=== PATIENT | male | born 1960 | race Caucasian/White ===

== ENCOUNTER 2016-12-12 16:20 | Inpatient (IN) | payer OTHER ==
[~2016-12-12] VITALS: Ht 172.7 cm; Wt 81.6 kg
--- NOTE | 2016-12-12 16:27 | NUR ---
56 Y/O MALE C/O DIFFICULTY WITH SPEECH AND WRITING X 1 WEEK; STATES HE WAS HAVING "VERTIGO SYMPTOMS" LAST WEEK AND SAW DOCTOR WHO "CHECKED ME OUT FOR STROKE AND I WAS OKAY". STATES, SINCE THAT VISIT AND THROUGHOUT THE WEEK, PT HAS "BEEN STRUGGLING WITH WORDS AND MY SAID MY SPEECH WAS SLURRED". PT NOTED TO PAUSE BEFORE STATING SOME WORDS. SPEECH CLEAR. SLIGHT WEAKNESS NOTED TO L HAND GRASP. NO ARM DRIFT NOTED. DENIES PAIN. TAKEN FOR EKG AND THEN FOR ROOM ASSIGNMENT/MD DIAS
--- NOTE | 2016-12-12 16:28 | NUR ---
NOTIFIED OF PATIENT'S CONDITION, BLOOD BEING DRAWN AND ROOM BEING MADE READY. DR CARRASQUILLO MADE AWARE OF SYMPTOMS.
[2016-12-12 16:47] LABS: ABSOLUTE BASOPHIL COUNT 0 /CUMM (0.0-0.2); ABSOLUTE EOSINOPHIL COUNT 0.4 /CUMM (0.0-0.7); ABSOLUTE GRANULOCYTE CT 4.2 /CUMM (1.4-6.5); ABSOLUTE LYMPH COUNT 2.1 /CUMM (1.2-3.4); ABSOLUTE MONOCYTE COUNT 0.4 /CUMM (0.10-0.60); BASOPHIL % 0.4 % (0.0-2.0); EOSINOPHIL % 5.3 % (0-5); GRANULOCYTE % 58.4 % (42.2-75.2); HEMATOCRIT 37.9 % (42-52); MEAN CORPUSCULAR HGB 29.4 PG (27.0-31.0); MEAN CORPUSCULAR VOLUME 86.6 FL (80.0-94.0); MEAN PLATELET VOLUME 8.5 FL (7.4-10.4); PLATELET COUNT 222 /CUMM (130-400); RBC DISTRIBUTION WIDTH 14.1 % (11.5-14.5); RED BLOOD CELL CT 4.38 /CUMM (4.70-6.10); WHITE BLOOD CELL COUNT 7.1 /CUMM (4.8-10.8)
--- NOTE | 2016-12-12 16:50 | NUR ---
PT ARRIVED TO AND AWAITING MD DIAS
--- NOTE | 2016-12-12 17:03 | ED NEURO DEFICIT/STROKE ---
See Addendum History of Present Illness General Chief Complaint: Neuro Symptoms/ Deficit Stated Complaint: DIFFICULTY WITH SPEACH AND WRITTING Source: patient, family Exam Limitations: no limitations Vital Signs & Intake/Output Vital Signs & Intake/Output Vital Signs Date Time Temp Pulse Resp B/P B/P Pulse O2 O2 Flow FiO2 Mean Ox Delivery Rate 12/13 1009 97.1 78 18 120/72 12/13 0842 97.1 78 18 120/72 96 Room Air 12/12 2325 98.2 74 18 130/70 96 Room Air 12/12 2111 96.3 65 18 148/77 96 Room Air 12/12 1830 97.5 59 15 133/75 96 Room Air Room Air 12/12 1729 Room Air Room Air 12/12 1623 96.9 76 14 164/94 98 Room Air ED Intake and Output 12/13 0000 12/12 1200 Intake Total 0 Output Total Balance 0 Intake, Oral 0 Patient 180 lb Weight Weight Reported by Patient Measurement Method Allergies Coded Allergies: No Known Allergies (12/12/16) Reconcile Medications Aspirin (Ecotrin*) 81 MG TABLET.DR 1 TAB PO DAILY HEART/BLOOD (Reported) Atorvastatin Calcium 10 MG TABLET 1 TAB PO DAILY CHOLESTEROL (Reported) Magnesium Oxide (Magnesium) 500 MG CAPSULE 1 CAP PO DAILY SUPPLEMENT ( Reported) Olmesartan Medoxomil (Benicar) 20 MG TABLET 0.5 TAB PO DAILY BP (Reported) Triage Note: 56 Y/O MALE C/O DIFFICULTY WITH SPEECH AND WRITING X 1 WEEK; STATES HE WAS HAVING "VERTIGO SYMPTOMS" LAST WEEK AND SAW DOCTOR WHO "CHECKED ME OUT FOR STROKE AND I WAS OKAY". STATES, SINCE THAT VISIT AND THROUGHOUT THE WEEK, PT HAS "BEEN STRUGGLING WITH WORDS AND MY SAID MY SPEECH WAS SLURRED". PT NOTED TO PAUSE BEFORE STATING SOME WORDS. SPEECH CLEAR. SLIGHT WEAKNESS NOTED TO L HAND GRASP. NO ARM DRIFT NOTED. DENIES PAIN. TAKEN FOR EKG AND THEN FOR ROOM ASSIGNMENT/MD DIAS Triage Nurses Notes Reviewed? yes HPI: Patient presents for evaluation of difficulty speaking and writing that has been more or less constant for about a week. Patient states that his speech has been "slippery" and that his handwriting has been "sloppy". He denies any expressive aphasia visual changes lower extremity weakness or palpitations but he states he does have a past history of an intermittent "racing heart" that has been evaluated by heart monitors on at least 2 occasions in the past with no diagnosis made. He currently takes magnesium. He denies smoking or drug use. Symptoms are described as mild and nothing seems to make them improve. Past History Travel History Traveled to [place] past 21 day No Medical History Any Pertinent Medical History? see below for history Neurological: NONE EENT: NONE Cardiovascular: hypertension Respiratory: NONE Gastrointestinal: NONE Hepatic: NONE Renal: NONE Musculoskeletal: NONE Psychiatric: NONE Endocrine: NONE Blood Disorders: NONE Cancer(s): NONE DEVELOPMENT LEAD/Reproductive: NONE Surgical History Surgical History: non-contributory Psychosocial History What is your primary language French Tobacco Use: Never used Family History Hx Contributory? No Review of Systems Review of Systems Constitutional: Reports: no symptoms. EENTM: Reports: no symptoms. Respiratory: Reports: no symptoms. Cardiovascular: Reports: no symptoms. GI: Reports: no symptoms. Genitourinary: Reports: no symptoms. Musculoskeletal: Reports: no symptoms. Skin: Reports: no symptoms. Neurological/Psychological: Reports: see HPI. Hematologic/Endocrine: Reports: no symptoms. Immunologic/Allergic: Reports: no symptoms. All Other Systems: Reviewed and Negative Physical Exam Physical Exam General Appearance: See below Cranial Nerves: see below Comments: Gen.: Well-nourished, well-developed, no acute respiratory distress. Head: Normocephalic, atraumatic. Eyes: Normal inspection bilaterally Ears: Normal inspection bilaterally Nose: Normal inspection Throat/mouth : Moist mucosa Neck: Supple, full range of motion, no goiter Heart: Regular rate and rhythm, no murmurs rubs or gallops Lungs: Clear to auscultation bilaterally with normal air entry Chest: Nontender Back: Normal range of motion Abdomen: Soft, nontender, nondistended, normal bowel sounds Extremities: Normal range of motion grossly, equal radial pulses, no cyanosis clubbing or edema, normal strength and deep tendon reflexes Neurologic: Cranial nerves 2 through 12 intact, speech is clear, patient is able to state "no if's and's or but's", no apparent aphasia, no dysmetria Skin: warm and dry Psychiatric: Calm, cooperative, no apparent delusions or hallucinations Core Measures CVA/TIA Diagnosis: Yes Severe Sepsis Present: No Septic Shock Present: No Progress Differential Diagnosis: stroke, TIA Plan of Care: Orders Procedure Date/time Status Regular Diet 12/13 B Active MRI-HEAD W/O SUSANA 12/13 0903 Active NIH Stroke Scale 12/13 0829 Active THYROID STIMULATING HORMONE 12/13 0025 Complete VITAMIN B12 12/13 0025 Complete [id number] DOPPLER 12/13 UNK Active SPEECH EVALUATION 12/13 UNK Active Admit to inpatient 12/13 UNK Active Lab Add-on Test 12/[address] NECK ANGIOGRAM 12/[address] HEAD ANGIOGRAM 12/13 UNK Active ECHOCARDIOGRAM 12/13 UNK Active Vital Signs 12/12 2357 Active Teach/Educate 12/12 2356 Active Pain Treatment and Response 12/12 2356 Active Nutritional Intake, Monitor 12/12 2356 Active Isolation 12/12 2356 Active Intake & Output 12/12 2356 Active Patient Care Conference 12/12 2356 Active Activity/Ambulation 12/12 2356 Active TROPONIN LEVEL 12/12 2229 Complete EKG 12/12 2229 Active Pathway - chart 12/12 2112 Active Pathway - chart 12/13 2111 Active Patient Data 12/13 2035 Active OXYGEN SETUP (GEN) 12/13 2011 Active Saline Lock 12/[address] in observation 12/13 2011 Active Vital Signs 12/13 2011 Active Activity/Ambulation 12/13 2011 Active Code Status 12/13 2011 Active Intake & Output 12/12 1728 Complete NIH Stroke Scale 12/12 1700 Complete TROPONIN LEVEL 12/12 1637 Complete COMPREHENSIVE METABOLIC PANEL 12/12 1637 Complete CBC WITHOUT DIFFERENTIAL 12/12 1637 Complete GLYCOSYLATED HGB 12/12 1635 Complete EKG 12/12 1624 Active House Staff 12/12 UNK Active VTE Mechanical Prophylaxis 12/12 UNK Complete Vital Signs 12/12 UNK Active Precautions 12/12 UNK Active NIH Stroke Scale 12/12 UNK Complete Intake & Output 12/12 UNK Complete Current Medications Sig/Cameron Start time Last Medication Dose Stop Time Status Admin Clopidogrel Bisulfate 75 MG DAILY 12/14 1000 AC (Plavix) Aspirin Buffered 81 MG DAILY 12/13 1000 AC 12/13 (Ecotrin) 1009 Losartan Potassium 25 MG DAILY 12/13 1000 AC 12/13 (Cozaar) 1009 Magnesium Oxide 400 MG DAILY 12/13 1000 AC 12/13 (Mag-Ox) 1009 Clopidogrel Bisulfate 325 MG ONCE ONE 12/13 0915 CAN (Plavix) 12/13 0916 Atorvastatin Calcium 80 MG 1700 12/12 2300 AC (Lipitor) Heparin Sodium 5,000 UNIT Q8 12/12 2200 AC 12/13 (Porcine) 0600 Acetaminophen 650 MG Q6 PRN 12/12 2114 AC (Tylenol) Morphine Sulfate 2 MG Q6-PRN PRN 12/12 2114 AC (Morphine) Oxycodone HCl 5 MG Q6 PRN 12/12 2114 AC (Roxicodone) Laboratory Tests 12/13/16 0025: Troponin I < 0.01, Vitamin B12 361, TSH 2.930 12/12/16 1635: Anion Gap 12, Estimated GFR > 60, BUN/Creatinine Ratio 17.5, Glucose 126 H, Hemoglobin A1c 5.7, Calcium 9.1, Total Bilirubin 0.4, AST 24, ALT 39, Alkaline Phosphatase 57, Troponin I < 0.01, Total Protein 6.9, Albumin 4.3, Globulin 2.6, Albumin/Globulin Ratio 1.7, CBC w Diff NO MAN DIFF REQ, RBC 4.38 L, MCV 86.6, MCH 29.4, RDW 14.1, MPV 8.5, Gran % 58.4, Lymphocytes % 29.9, Monocytes % 6.0, Eosinophils % 5.3 H, Basophils % 0.4, Absolute Granulocytes 4.2, Absolute Lymphocytes 2.1, Absolute Monocytes 0.4, Absolute Eosinophils 0.4, Absolute Basophils 0, PUBS MCHC 34.0 Initial ED EKG: NSR, rate (67), no ST T wave changes Prior EKG: unchanged Comments: pt observed drinking fluids in ED without cough or delayed swallowing. bedside dysphagia screen passed. Departure Departure Disposition: STILL A PATIENT Condition: Stable Clinical Impression Primary Impression: CVA (cerebral vascular accident) Qualifiers: CVA mechanism: unspecified Qualified Code: I63.9 - Cerebral infarction, unspecified Referrals: AZAR HOYOS DO (PCP/Family) Departure Forms: Customer Survey General Discharge Information Observation Note Spoke With: JEREMIAS MARTIN,FRANKLIN Physician Advisor Notified: ATUL MARTIN,NOEMI Gomes Place Patient In: Non-ED OBS Care Area Rationale for Observation: My rational for observation is as follows: pt presents with symptoms c/w cva days ago. he has risk factors for cerebrovascular disease and is at high risk of additional strokes with significant debility. this pt requires an expedited evaluation of reversible causes of stroke including dysrhythmia (pt states he suffers from intermittent racing heartbeat), carotid artery disease and cardioembolic phenomenon. given this and the holiday weekend ensueing, i feel he requires hospitalization for continuous cardiac monitoring, carotid doppler and echocardiogram, and initiation of medical management. neurology consult should be obtained.
--- NOTE | 2016-12-12 17:05 | NUR ---
ON ARRIVAL TO ROOM, NO SIGNS OF NEURO DEFICITS. EQUAL STRENGTH ON BOTH SIDE OF BODY. NO APHASIA NOTED. NIH SCALE = 0. 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
--- NOTE | 2016-12-12 18:10 | NUR ---
PT TO CT VIA STRETCHER
[2016-12-12] MEDS ORDERED: BENICAR20 M1 PO (18:22)
[2016-12-12] MEDS ORDERED: ATORVASTATIN CA10 M1 PO (18:22)
[2016-12-12] MEDS ORDERED: ASPIRIN EC81 M1 PO (18:23)
[2016-12-12] MEDS ORDERED: MAGNESIUM500 M2 PO (18:23)
--- NOTE | 2016-12-12 18:32 | CT SCAN REPORT ---
EXAMINATION: CT HEAD WITHOUT CONTRAST CLINICAL INFORMATION: Speech and writing difficulties. COMPARISON: None. TECHNIQUE: Contiguous axial imaging was performed from the skull base to vertex without intravenous contrast. DLP: 619 mGy-cm. FINDINGS: There is focal parenchymal hypoattenuation within the right cerebellar hemisphere as seen on series 2 image 18. This may represent an infarct of uncertain chronicity. There is no evidence of acute intracranial hemorrhage or cerebral territorial infarction. No abnormal mass effect or midline shift is seen. Jacobs to white matter differentiation is well preserved. No extra-axial fluid collections are identified. No hydrocephalus. No significant volume loss. Patchy periventricular and deep white matter hypoattenuation is consistent with mild small vessel ischemic changes. The osseous structures and soft tissues are normal. The mastoid air cells are well aerated. Moderate opacification of the ethmoid air cells. Mild opacification of the sphenoid sinuses. IMPRESSION: No acute intracranial hemorrhage. Focal hypoattenuation within the right cerebellar hemisphere could represent an infarct of uncertain chronicity. This could be further evaluated by MRI. Additional mild small vessel ischemic changes.
--- NOTE | 2016-12-12 20:38 | NUR ---
OBS PAPERWORK COMPLETED AND PLACED IN PATIENT CHART BY CASE MANGAEMENT.
--- NOTE | 2016-12-12 21:06 | History & Physical ---
MIAN MARTIN,NATALIEANDRE 12/12/162101: General Information and HPI MD Statement: I have seen and personally examined WILLIS WILLIAMSON and documented this H&P. The patient is a 56 year old M who presented with a patient stated chief complaint of [difficulty speaking and writing]. Source of Information: patient, old records Exam Limitations: no limitations History of Present Illness: This is a 56 yo male with PMH of palpitations, hyperlipidemia, hypertension who comes in for chief complaint of difficulty speaking and writing for the past 1 week. Patient states on Friday around 10:45 am while he was at work he noticed sudden onset of dizziness, slight nausea, and had to sit down. He went to the school nurse for further evaluation. He was noted to be slightly hypertensive with systolic in the 140s but otherwise no other deficits or abnormalities were noted. Subsequently, he noted some slight mechanical dysarthria in his speech and some minor changes in handwriting. Given the dysarthria, he went to see his PCP, Dr. Aguilera, on the same day who performed a physical exam and noted no deficits. He did however, start the patient on a low -dose aspirin. By Friday a.m. patient noted the dizziness went away but the dysarthria and the clumsy handwriting remained. Patient noted some slight nausea during the onset of dizziness on Friday but it eventually went away. He denies any choking or issues with swallowing. Denies any thought block or inability to articulat other than slight dysarthria. He endorsed some slight numbness in his right fifth digit but no other sensory deficits. Denies any headache, chest pain, shortness of breath, change in vision, constipation, diarrhea, or any prodromal symptoms the past week. Family history notable for stroke in his sister at the age of 60 and significant CAD in mother resulting in triple bypass. He does not smoke, is a social drinker up to 4 times a week with wine, denies any other drug history. He does endorse a distant history of "racing heart." He was evaluated with what he describes as a Holter monitor at least 2-3 times but apparently no diagnosis was made. 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 He has never had a previous such episode. Allergies/Medications Allergies: Coded Allergies: No Known Allergies (12/12/16) Home Med list Aspirin (Ecotrin*) 81 MG TABLET.DR 1 TAB PO DAILY HEART/BLOOD (Reported) Atorvastatin Calcium 10 MG TABLET 1 TAB PO DAILY CHOLESTEROL (Reported) Atorvastatin Calcium 80 MG TABLET 80 MG PO 1700 HEART Magnesium Oxide (Magnesium) 500 MG CAPSULE 1 CAP PO DAILY SUPPLEMENT ( Reported) Olmesartan Medoxomil (Benicar) 20 MG TABLET 0.5 TAB PO DAILY BP (Reported) Compliance With Home Meds: GOOD Past History Travel History Traveled to [place] past 21 day No Medical History Neurological: NONE EENT: NONE Cardiovascular: hypertension Respiratory: NONE Gastrointestinal: NONE Hepatic: NONE Renal: NONE Musculoskeletal: NONE Psychiatric: NONE Endocrine: NONE Blood Disorders: NONE Cancer(s): NONE 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 Ambulation: independent IADLs Independent: shopping. Employment History Employment Employed Review of Systems Review of Systems Constitutional: Denies: chills, fever, malaise, weakness. EENTM: Denies: blurred vision, double vision, visual changes, ear discharge, ear pain, nasal congestion, epistaxis, nasal pain, throat swelling. Cardiovascular: Denies: chest pain, edema, orthopena, palpitations, peripheral edema, syncope. Respiratory: Denies: cough, hemoptysis, orthopnea, short of breath, stridor, wheezing. GI: Denies: abdominal pain, bloating, constipation, diarrhea. Genitourinary: Denies: discharge, dysuria, frequency, hematuria, hesitation, nocturia, pain, urgency. Musculoskeletal: Denies: back pain, gout, joint pain, joint swelling, muscle pain, muscle stiffness, neck pain. Skin: Reports: no symptoms. Neurological/Psychological: Reports: numbness. Denies: anxiety, ataxia, cognitive dysfunction, confusion, depressed, dementia, emotional problems, headache, paresthesia, pre-existing deficit, petit mal seizures, tingling, tremors, tonic-clonic seizures, unable to move lower ext, unable to move upper ext, weakness. Exam & Diagnostic Data Last 24 Hrs of Vital Signs/I&O Vital Signs Date Time Temp Pulse Resp B/P B/P Pulse O2 O2 Flow FiO2 Mean Ox Delivery Rate 12/12 2325 98.2 74 18 130/70 96 Room Air 12/12 2111 96.3 65 18 148/77 96 Room Air 12/12 1830 97.5 59 15 133/75 96 Room Air Room Air 12/12 1729 Room Air Room Air 12/12 1623 96.9 76 14 164/94 98 Room Air Physical Exam General Appearance Alert, Oriented X3, Cooperative, No Acute Distress Skin No Rashes, No Breakdown, No Significant Lesion HEENT Atraumatic, PERRLA, EOMI, Mucous Membr. moist/pink, Cranial nerves 2-12 intact. No deviation of tongue or uvula . He did have some nystagmus to the left Neck Supple, No JVD, No LAD Cardiovascular Regular Rate, Normal S1, Normal S2, No Murmurs Lungs Clear to Auscultation, Normal Air Movement Abdomen Soft, No Tenderness Neurological Normal Gait, Normal Speech, Strength at 5/5 X4 Ext, Normal Tone, Sensation Intact, Cranial Nerves 3-12 NL, Reflexes 2+, cardiovascular 12 intact. No tongue or uvula deviation. He did have some nystagmus towards the left., no dysdiadochokinesia noted. No pronator drift., slight dysarthria noted particularly towards the suffix upwards. Handwriting a slightly untidy and different from baseline per patient., No pronator drift. Some slight imbalance noted when he was standing with eyes closed Extremities No Clubbing, No Cyanosis, No Edema, Normal Pulses Last 24 Hrs of Labs/Yung: Laboratory Tests 12/12/16 1635: Anion Gap 12, Estimated GFR > 60, BUN/Creatinine Ratio 17.5, Glucose 126 H, Calcium 9.1, Total Bilirubin 0.4, AST 24, ALT 39, Alkaline Phosphatase 57, Troponin I < 0.01, Total Protein 6.9, Albumin 4.3, Globulin 2.6, Albumin/ Globulin Ratio 1.7, CBC w Diff NO MAN DIFF REQ, RBC 4.38 L, MCV 86.6, MCH 29.4, RDW 14.1, MPV 8.5, Gran % 58.4, Lymphocytes % 29.9, Monocytes % 6.0, Eosinophils % 5.3 H, Basophils % 0.4, Absolute Granulocytes 4.2, Absolute Lymphocytes 2.1, Absolute Monocytes 0.4, Absolute Eosinophils 0.4, Absolute Basophils 0, PUBS MCHC 34.0 Assessment/Plan Assessment: This is a 56-year-old female with significant history of subjective palpitations is in for chief complaint of slight dysarthria, clumsy handwriting and dizziness. Given that he had some pathology noted in CT of head he is being admitted for further workup of stroke. ED workup shows: Vitals: 96.9, 76, 14, blood pressure 164/94, satting 90% room air. CBC shows white count 7.1, hemoglobin 12.9, hematocrit 37.9. BEP within normal limits. LFT within normal limits. CT HEAD IMPRESSION: No acute intracranial hemorrhage. Focal hypoattenuation within the right cerebellar hemisphere could represent an infarct of uncertain chronicity. This could be further evaluated by MRI. Additional mild small vessel ischemic changes. EKG: First-degree heart block with heart rate 67 and QTC 444 PLAN 1. Stroke: Patient has focal attenuation in the cerebellar hemisphere. Given the nystagmus and slight imbalance it corresponds with possible cerebellar infarct. However would not explain his dysarthria and change in handwriting. * Consider MRI for further evaluation per neurology recommendations * Echocardiogram * Ultrasound of carotids * Monitor on telemetry * Continue aspirin * Switch to high-dose statin * Neurology consult in a.m. 2. Previous history of palpitation: Patient states that he has distant history of racing heart rate without any resolution or diagnoses. He is in placed on magnesium for this by his PCP. He states that the magnesium seems to help. He has never been evaluated by manager ccu for his problem. * Continue magnesium * Cardio consult with Dr. Heard as rest of family members follow-up with this manager ccu 3. Hypertension: Patient came in with BP 164/94. * Continue home Benicar Full code Regular diet Chemical DVT prophylaxis As Ranked By This Provider Problem List: 1. Stroke Qualifiers CVA mechanism: unspecified Qualified Code: I63.9 - Cerebral infarction, unspecified Core Measures/Miscellaneous Acute Coronary Syndrome ACS Diagnosis: No Cerebrovascular Accident CVA/TIA Diagnosis: Yes NIH Stroke Scale: Total 1 Date Last Known Well: 12/04/16 Time Last Known Well: 1045 Neurological S/S of CVA: Dizziness Symptom Start Date: 12/04/16 Symptom Start Time: 104 Reason tPA not ordered Medical Contraindication Bedside Swallow Eval Done: Yes Result of Evaluation: Pass Days in Hospital: 3 Antithrombotic: No No Antithrombotic d/t: Medical Contraindication AFIB: No Aflutter: No No Anticoag d/t: Medical Contraindication Evidence of Atherosclerosis: No LDL Assessed Within 24 Hours: No (already done previously) Currently on Statin: Yes Rehab Needs Assessed: Medical Eval for Rehab PT Consult Ordered: Yes Congestive Heart Failure CHF Diagnosis: No Venous Thromboembolism VTE Risk Factors: Age > 40 [facility] d/t: No contraindications No VTE Pharm Prophylaxis d/t: No contraindications VTE Diagnosis: No VTE Type: NONE VTE Confirmed by (Test): NONE Severe Sepsis Severe Sepsis Present: No Septic Shock Septic Shock Present: No Miscellaneous Documentation Attending Case Discussed With: [facility] Primary Care Physician: AZAR AGUILERA DO Patient sees these Specialists unknown Level of Patient Care: Telemetry UL ELEONORA MARTIN,WEN 12/12/16 2201: Resident Review Statement Resident Statement: examined this patient, discussed with international broadcast music librarian, agreed with international broadcast music librarian, discussed with family Other Findings: 56-year-old man with past medical history significant for hypertension, hyperlipidemia, palpitations, came to emergency department chief complaint of difficulty speaking and some change in his handwriting that happened a week ago. Symptoms are constant for the last 1 week. According to him he developed some dizziness at around 10:45 AM on last Friday. Went to his primary care doctor and had a neurological examination. He was diagnosed to have vertigo and was told to do certain exercises. Since his symptoms persisted for over a week, at her appointment with primary care doctor mentioned about this and was told to go to the emergency department had a CAT scan. Vitals in emergency department patient afebrile, no tachypnea, no tachycardia, systolic blood pressure 133-164 and diastolic 75-94, oxygen saturation of 96-98% on room air. EKG showed first-degree heart block, heart rate of 66, sinus rhythm. On examination patient was alert and oriented not in any acute distress. S1 and S2 audible without any murmurs. Clear lungs, benign abdominal examination, no carotid bruit, on neurological examination, intact cranial nerves, horizontal nystagmus, sensation and strength intact bilateral upper and lower extremities, brisk reflexes, patient was swaying a little on Romberg. Gait without deficits. Labs did not show any leukocytosis, recent normal lipid panel, troponin of less than 0.01, no electrolyte abnormalities. Head CT scan was done which showed a focal hypoattenuation of right cerebellar hemisphere. Patient was admitted admitted on telemetry floor for the management of following problems Subacute ischemic stroke Source of ischemic stroke is unclear. There is no carotid bruit on examination patient does have history of palpitations therefore will rule out the possibility of any underlying arrhythmia. - Admit to Telemetry - Vitals Q Shift - Monitor BP - Keep BP above or equal to 160/90 - Q4 hour Neurochecks - Fall Precautions - ASA daily - Lipitor 80mg PO daily - Bed Side Swallow done in ED - PT/OT therapy - Will check trops and EKG X 2 - Neurology Consult - Check Echo - Carotid Dopplers - MRI Brain ? History of hypertension/hyperlipidemia We will change low-dose moderate intensity statin to high intensity statin in hospital given his recent presentation of ischemic stroke. Continue home medication for blood pressure control. Patient is on heparin subcutaneous for DVT prophylaxis Patient is on regular diet Patient had a swallow evaluation done in emergency department Patient is on pain pathway Patient is full code JANET MARTIN, [facility] 12/13/16 0113: Attending MD Review Statement Attending Statement Attending MD Statement: examined this patient, discuss w/resident/PA/SOLVENT PLANT OPERATOR, agreed w/resident/PA/SOLVENT PLANT OPERATOR, discussed with family Attending Assessment/Plan: 56 yo M with h/o HTN, HLD, and family h/o stroke in his sister at age 60 yrs, first noted vertigo > 1 week ago associated with speech deficits mainly difficulty pronouncing words, slurring and changes in his handwriting. He saw his PCP, who found no neurological deficits and prescribed low dose aspirin. However, symptoms did not get better, his PCP advised him to go to ER to get a CT scan. Denies facial droop, paresis, dysphagia, dyphonia, photophobia, vision changes or headache. Nonsmoker. Of note, he has been evaluated with Holter twice in the past for infrequent palpitations, with no clear etiology. He also had a stress test that was negative. Never seen a manager ccu. VSS. Neuro: speech for the most part clear with intermittent slurring, tongue/ uvula central, cranial nerve exam normal, horizontal nystagmus more prominent to the left, power 5/5, sensation intact, reflexes 2+, finger-nose testing normal, no dysdiadochokinesia, no pronator drift. Plantars downgoing. Romber's positive within right cerebellar hemisphere infarct of uncertain chronicity, mild small vessel ischemic changes. EKG: SR, first degree heart block. 1. Subacute (duration > 1 week) cerebellar ischemic stroke. Tele 23 Obs, neurochecks, aspirin, high dose statin, rule out ACS, obtain echo, carotid dopplers, MRI brain. Rule out arrhythmias. Neuro and Cardio consult. Check HbA1c , TSH, B12. Lipid panel last checked Aug 2016 (normal). Patient passed bedside swallow eval. PT/OT/ speech therapy. 2. Essential HTN. Resume olmesartan. DVT ppx Lovenox. Full code.
--- NOTE | 2016-12-12 21:14 | NUR ---
PATIENT AWAKE, ALERT AND ORIENTED. NIH SCALE-0. DENIES COMPLAINTS.
--- NOTE | 2016-12-12 21:52 | NUR ---
REPORT CALLED TO [facility].
--- NOTE | 2016-12-12 22:09 | NUR ---
IV EST #20 IN RIGHT FOREARM
--- NOTE | 2016-12-12 22:13 | NUR ---
[facility] CALLED FOR TRANSPORT
[2016-12-12 23:25] VITALS: BP 130/70
--- NOTE | 2016-12-13 06:19 | PN- Housestaff ---
See Addendum Subjective Follow-up For: Subacute stroke Tele-Events Since Last Visit: NSR with HR 53-73 First degree AVB at 10pm and 12am Subjective: Patient seen and examined at bedside. Resting comfortably in bed with no complaints. Still has difficulty with his handwriting with numbness in the finger and dysarthria. Eating well with no dysphagia. Denies any headache, vision changes, chest discomfort, palpitations, lightheadedness, dizziness, abdominal pain, n/v/c/d. Review of Systems Constitutional: Reports: see HPI. Objective Last 24 Hrs of Vital Signs/I&O Vital Signs Date Time Temp Pulse Resp B/P B/P Pulse O2 O2 Flow FiO2 Mean Ox Delivery Rate 12/12 2325 98.2 74 18 130/70 96 Room Air 12/12 2111 96.3 65 18 148/77 96 Room Air 12/12 1830 97.5 59 15 133/75 96 Room Air Room Air 12/12 1729 Room Air Room Air 12/12 1623 96.9 76 14 164/94 98 Room Air Intake & Output 12/13 1600 12/13 0800 12/13 0000 Intake Total 100 0 Output Total Balance 100 0 Intake, Oral 100 0 Patient 81.647 kg Weight Weight Reported by Patient Measurement Method Physical Exam General Appearance: Alert, Oriented X3, Cooperative, No Acute Distress Other Physical Findings: Skin No Rashes, No Breakdown, No Significant Lesion HEENT Atraumatic, PERRLA, EOMI, Mucous Membr. moist/pink, Cranial nerves 2-12 intact. No deviation of tongue or uvula . He did have some nystagmus to the left Neck Supple, No JVD, No LAD Cardiovascular Regular Rate, Normal S1, Normal S2, No Murmurs Lungs Clear to Auscultation, Normal Air Movement Abdomen Soft, No Tenderness Neurological Normal Gait, Normal Speech, Strength at 5/5 X4 Ext, Normal Tone, Sensation Intact, Cranial Nerves 3-12 NL, Reflexes 2+, cardiovascular 12 intact. No tongue or uvula deviation. He did have some nystagmus towards the left., no dysdiadochokinesia noted. No pronator drift., slight dysarthria noted particularly towards the suffix upwards. Handwriting a slightly untidy and different from baseline per patient., No pronator drift. Some slight imbalance noted when he was standing with eyes closed Extremities No Clubbing, No Cyanosis, No Edema, Normal Pulses Current Medications: Current Medications Sig/Cameron Start time Last Medication Dose Route Stop Time Status Admin Acetaminophen 650 MG Q6 PRN 12/12 2114 AC PO Aspirin Buffered 81 MG DAILY 12/13 1000 AC PO Atorvastatin Calcium 80 MG 1700 12/12 2300 AC PO Heparin Sodium 5,000 UNIT Q8 12/12 2200 AC 12/13 (Porcine) SC 0042 Losartan Potassium 25 MG DAILY 12/13 1000 AC PO Magnesium Oxide 400 MG DAILY 12/13 1000 AC PO Morphine Sulfate 2 MG Q6-PRN PRN 12/12 2114 AC IV Oxycodone HCl 5 MG Q6 PRN 12/12 2114 AC PO Last 24 Hrs of Lab/Yung Results Last 24 Hrs of Labs/Mics: Laboratory Tests 12/13/16 0025: Troponin I < 0.01, Vitamin B12 361, TSH 2.930 12/12/16 1635: Anion Gap 12, Estimated GFR > 60, BUN/Creatinine Ratio 17.5, Glucose 126 H, Hemoglobin A1c Pending, Calcium 9.1, Total Bilirubin 0.4, AST 24, ALT 39, Alkaline Phosphatase 57, Troponin I < 0.01, Total Protein 6.9, Albumin 4.3, Globulin 2.6, Albumin/Globulin Ratio 1.7, CBC w Diff NO MAN DIFF REQ, RBC 4.38 L, MCV 86.6, MCH 29.4, RDW 14.1, MPV 8.5, Gran % 58.4, Lymphocytes % 29.9, Monocytes % 6.0, Eosinophils % 5.3 H, Basophils % 0.4, Absolute Granulocytes 4.2, Absolute Lymphocytes 2.1, Absolute Monocytes 0.4, Absolute Eosinophils 0.4, Absolute Basophils 0, PUBS MCHC 34.0 Assessment/Plan Assessment: 56 yo M with h/o HTN, HLD, and family h/o stroke in his sister at age 60 yrs, first noted vertigo > 1 week ago associated with speech deficits mainly difficulty pronouncing words, slurring and changes in his handwriting most likely 2/2 subacute CVA. # Subacute cerebellar ischemic CVA - CT Head (12/12): No acute intracranial hemorrhage. Focal hypoattenuation within the right cerebellar hemisphere could represent an infarct of uncertain chronicity. This could be further evaluated by MRI. Additional mild small vessel ischemic changes. * Change observation to full admission * Continue tele to monitor for arrhythmias * NIH stroke scale neurochecks Q4H * Cont aspirin and high dose statin (increased to 80mg QD) * Rule out ACS wtih serial trops/EKGs * Obtain echocardiogram to r/o cardiac emboli * CTA of brain and neck and MRI of brain * Carotid dopplers - unremarakble (stenosis present on L carotid bifurication but less than 50%) * Appreciate neuro and cardio recs * Check HbA1c, TSH, B12 - unremarkable * Speech thearpy/eval, appreciate recs (Patient passed bedside swallow eval. PT/ OT/ speech therapy.) # Essential HTN. Patient on olmesartan 10mg QD at home. * Cont losartan 25mg PO QD - Heart healthy diet - Mild pain pathway - DVT ppx with Lovenox. - Full code. Problem List: 1. Stroke Pain Ratin Pain Location: 0 Pain Goal: Remain pain free Pain Plan: Mild pathway Tomorrow's Labs & Rationales: BEP to monitor for electrolytes
[2016-12-13 08:42] VITALS: BP 120/72; BP 122/64
--- NOTE | 2016-12-13 12:39 | Cons- Neurology ---
General Information and HPI Consulting Request Date of Consult: 12/13/16 Requested By: RANDELL ZHANG MD History of Present Illness: 56-year-old male with history of hypertension and hyperlipidemia presented one week prior to admission with acute vertigo seated with some slurring of speech and minor change in his handwriting. His dizziness largely resolved however as his speech difficulties remained, he was referred to the emergency room where he was ultimately admitted. CAT scan of the brain on admission showed a right cerebellar infarct. The patient had no prior history of stroke. He denied associated diplopia, dysphagia or gait ataxia. In point of fact, he was managing all activities of daily living over the past week including attending yoga class. Allergies/Medications Allergies: Coded Allergies: No Known Allergies (12/12/16) Home Med List: Aspirin (Ecotrin*) 81 MG TABLET.DR 1 TAB PO DAILY HEART/BLOOD (Reported) Atorvastatin Calcium 10 MG TABLET 1 TAB PO DAILY CHOLESTEROL (Reported) Magnesium Oxide (Magnesium) 500 MG CAPSULE 1 CAP PO DAILY SUPPLEMENT ( Reported) Olmesartan Medoxomil (Benicar) 20 MG TABLET 0.5 TAB PO DAILY BP (Reported) Review of Systems Review of Systems: Notable for slurred speech, impaired handwriting and resolving vertigo. 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 Ambulation: independent IADLs Independent: shopping. Employment History Employment: Employed Exam & Diagnostic Data Vital Signs and I&O Vital Signs Date Time Temp Pulse Resp B/P B/P Pulse O2 O2 Flow FiO2 Mean Ox Delivery Rate 12/13 1009 97.1 78 18 120/72 12/13 0842 97.1 78 18 120/72 96 Room Air 12/12 2325 98.2 74 18 130/70 96 Room Air 12/12 2111 96.3 65 18 148/77 96 Room Air 12/12 1830 97.5 59 15 133/75 96 Room Air Room Air 12/12 1729 Room Air Room Air 12/12 1623 96.9 76 14 164/94 98 Room Air Intake & Output 12/13 1600 12/13 0800 12/13 0000 Intake Total 100 0 Output Total Balance 100 0 Intake, Oral 100 0 Patient 180 lb Weight Weight Reported by Patient Measurement Method Pleasant middle-aged gentleman in no acute distress. Head was normocephalic and atraumatic. He was awake, alert and cooperative. Higher cortical function was grossly intact. Speech was fluent although minimally dysarthric. Pupils were equal and reactive. Extraocular movements were full. There was no nystagmus. There was no gross weakness of facial musculature. Hearing was normal. Tongue was midline. Motor examination showed no focal or lateralizing weakness. Deep tendon reflexes were symmetric. Plantar responses were flexor. Fine finger movements, rapid alternating movements, [id number] testing and [id number] testing all revealed no abnormalities. His gait was narrow based and steady. He was able to tandem walk. The march test was negative. Assessment/Plan Assessment: has suffered a small cerebellar, ischemic infarct. He currently has no signs of objective appendicular or gait ataxia. I expect that he will make a full recovery. Recommendations: I would pursue either a CTA or MRA in hopes of pinning down the site of his lesion. His clinical presentation would bespeak an abnormality in the posterior circulation as opposed to a carotid territory infarct. Echocardiogram also recommended. This could be performed as an outpatient if logistics do not permit the tests to be done today. He may be up and around ad herbie. The patient should continue on an aspirin and a statin. We would be happy to see him in follow-up in the office setting should there be lingering symptoms or concerns. Please feel free to call with any further questions. Consult Acknowledgment - Thank you for your consult request.
--- NOTE | 2016-12-13 13:01 | Cons- Cardiology ---
General Information and HPI Consulting Request Date of Consult: 12/13/16 Requested By: RANDELL ZHANG MD Reason for Consult: Subacute stroke; rule out cardiac embolic source Source of Information: patient, family Exam Limitations: no limitations History of Present Illness: The patient is a 56-year-old white male with a past medical history of palpitations, hyperlipidemia, and hypertension. The patient is admitted to the hospital following one week of neurologic symptoms. The patient notes that this past week, while at work, he noticed the acute onset of dizziness with some nausea. 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 No other obvious neurologic deficits were present at that time. However, the patient subsequently noted some mild speech difficulty and difficulty with handwriting. The patient was seen by Dr. Escalera. Apparently his examination at that time was normal. He was started on low-dose aspirin. Subsequent, the patient noted that the dysarthria and handwriting issues persisted and the patient came to the emergency room. He denies any other neurologic symptoms. He does note a history of palpitations but denies any palpitations during the two-week period prior to the actual event. He denies any other cardiovascular symptoms. Allergies/Medications Allergies: Coded Allergies: No Known Allergies (12/12/16) Home Med List: Aspirin (Ecotrin*) 81 MG TABLET.DR 1 TAB PO DAILY HEART/BLOOD (Reported) Atorvastatin Calcium 10 MG TABLET 1 TAB PO DAILY CHOLESTEROL (Reported) Magnesium Oxide (Magnesium) 500 MG CAPSULE 1 CAP PO DAILY SUPPLEMENT ( Reported) Olmesartan Medoxomil (Benicar) 20 MG TABLET 0.5 TAB PO DAILY BP (Reported) Current Medications: Current Medications Sig/Cameron Start time Last Medication Dose Route Stop Time Status Admin Acetaminophen 650 MG Q6 PRN 12/12 2115 AC PO Aspirin Buffered 81 MG DAILY 12/13 1000 AC 12/13 PO 1009 Atorvastatin Calcium 80 MG 1700 12/12 2300 AC PO Clopidogrel Bisulfate 75 MG DAILY 12/14 1000 AC PO Clopidogrel Bisulfate 300 MG ONCE ONE 12/13 0930 DC 12/13 PO 12/13 0931 1010 Clopidogrel Bisulfate 325 MG ONCE ONE 12/13 0915 CAN PO 12/13 0916 Heparin Sodium 5,000 UNIT Q8 12/12 2200 AC 12/13 (Porcine) SC 0600 Losartan Potassium 25 MG DAILY 12/13 1000 AC 12/13 PO 1009 Magnesium Oxide 400 MG DAILY 12/13 1000 AC 12/13 PO 1009 Morphine Sulfate 2 MG Q6-PRN PRN 12/12 2114 AC IV Oxycodone HCl 5 MG Q6 PRN 12/12 2114 AC PO Potassium Chloride 20 MEQ ONCE ONE 12/13 0915 DC 12/13 PO 12/13 0916 1010 Past History Travel History Traveled to [place] past 21 day No Medical History Neurological: NONE EENT: NONE Cardiovascular: hypertension Respiratory: NONE Gastrointestinal: NONE Hepatic: NONE Renal: NONE Musculoskeletal: NONE Psychiatric: NONE Endocrine: NONE Blood Disorders: NONE Cancer(s): NONE WIRE CHARGER/Reproductive: NONE Surgical History Surgical History: non-contributory Psychosocial History Smoking Status: Never Smoked ETOH Use: occasional use Illicit Drug Use: denies illicit drug use Functional Ability ADLs Independent: dressing, eating, toileting, bathing. Ambulation: independent IADLs Independent: shopping. Employment History Employment: Employed Exam & Diagnostic Data Vital Signs and I&O Vital Signs Date Time Temp Pulse Resp B/P B/P Pulse O2 O2 Flow FiO2 Mean Ox Delivery Rate 12/13 1009 97.1 78 18 120/72 12/13 0842 97.1 78 18 120/72 96 Room Air 12/12 2325 98.2 74 18 130/70 96 Room Air 12/12 2111 96.3 65 18 148/77 96 Room Air 12/12 1830 97.5 59 15 133/75 96 Room Air Room Air 12/12 1729 Room Air Room Air 12/12 1623 96.9 76 14 164/94 98 Room Air Intake & Output 12/13 1600 12/13 0800 12/13 0000 12/12 1600 12/12 0800 12/12 0000 Intake Total 100 0 Output Total Balance 100 0 Intake, Oral 100 0 Patient 180 lb Weight Weight Reported by Patient Measurement Method Physical Exam: General Appearance Alert, Oriented X3, Cooperative, No Acute Distress Skin No Rashes, No Breakdown, No Significant Lesion HEENT Atraumatic, PERRLA, EOMI, Mucous Membr. moist/pink, Cranial nerves 2-12 intact. No deviation of tongue or uvula . He did have some nystagmus to the left Neck Supple, No JVD, No LAD, carotids normal bilaterally with no bruits Cardiovascular Regular Rate, Normal S1, Normal S2, 1/6 systolic murmur Lungs Clear to Auscultation, Normal Air Movement Abdomen Soft, No Tenderness Neurological Speech was fluent although minimally dysarthric. Pupils were equal and reactive. Extraocular movements were full. There was no nystagmus. There was no gross weakness of facial musculature. Hearing was normal. Tongue was midline. Motor examination showed no focal or lateralizing weakness. Deep tendon reflexes were symmetric. Plantar responses were flexor. Fine finger movements, rapid alternating movements, [id number]-[id number] testing and dtdh-vu-[id number] testing all revealed no abnormalities. His gait was narrow based and steady. He was able to tandem walk. The march test was negative. Extremities No Clubbing, No Cyanosis, No Edema, Normal Pulses Labs/Yung Results: Laboratory Tests 12/13 12/12 0025 1635 Chemistry Sodium (137 - 145 mmol/L) 140 Potassium (3.5 - 5.1 mmol/L) 3.8 Chloride (98 - 107 mmol/L) 103 Carbon Dioxide (22 - 30 mmol/L) 26 Anion Gap (5 - 16) 12 BUN (9 - 20 mg/dL) 14 Creatinine (0.7 - 1.2 mg/dL) 0.8 Estimated GFR (>60 ml/min) > 60 BUN/Creatinine Ratio (7 - 25 %) 17.5 Glucose (65 - 99 mg/dL) 126 H Hemoglobin A1c (4.2 - 5.8 %) 5.7 Calcium (8.4 - 10.2 mg/dL) 9.1 Total Bilirubin (0.2 - 1.3 mg/dL) 0.4 AST (17 - 59 U/L) 24 ALT (21 - 72 U/L) 39 Alkaline Phosphatase (< 127 U/L) 57 Troponin I (<0.11 ng/ml) < 0.01 < 0.01 Total Protein (6.3 - 8.2 g/dL) 6.9 Albumin (3.5 - 5.0 g/dL) 4.3 Globulin (1.9 - 4.2 gm/dL) 2.6 Albumin/Globulin Ratio (1.1 - 2.2 %) 1.7 Vitamin B12 (239 - 931 pg/mL) 361 TSH (0.270 - 4.200 uIU/mL) 2.930 Hematology CBC w Diff NO MAN DIFF REQ WBC (4.8 - 10.8 /CUMM) 7.1 RBC (4.70 - 6.10 /CUMM) 4.38 L Hgb (14.0 - 18.0 G/DL) 12.9 L Hct (42 - 52 %) 37.9 L MCV (80.0 - 94.0 FL) 86.6 MCH (27.0 - 31.0 PG) 29.4 RDW (11.5 - 14.5 %) 14.1 Plt Count (130 - 400 /CUMM) 222 MPV (7.4 - 10.4 FL) 8.5 Gran % (42.2 - 75.2 %) 58.4 Lymphocytes % (20.5 - 51.1 %) 29.9 Monocytes % (1.7 - 9.3 %) 6.0 Eosinophils % (0 - 5 %) 5.3 H Basophils % (0.0 - 2.0 %) 0.4 Absolute Granulocytes (1.4 - 6.5 /CUMM) 4.2 Absolute Lymphocytes (1.2 - 3.4 /CUMM) 2.1 Absolute Monocytes (0.10 - 0.60 /CUMM) 0.4 Absolute Eosinophils (0.0 - 0.7 /CUMM) 0.4 Absolute Basophils (0.0 - 0.2 /CUMM) 0 PUBS MCHC (33.0 - 37.0 G/DL) 34.0 Diagnostic Data Other Results Head CT: IMPRESSION: No acute intracranial hemorrhage. Focal hypoattenuation within the right cerebellar hemisphere could represent an infarct of uncertain chronicity. This could be further evaluated by MRI. Additional mild small vessel ischemic changes. Assessment/Plan Assessment/Plan Assessment: 1. Cerebellar stroke, subacute 2. History of hypertension 2. History of palpitations Recommendations: -Continue as outlined by the medical team. -Await echocardiogram -Carotid ultrasound pending -Neurology input pending -In view of the patient's young age, if there is no evidence of any significant carotid disease, I would pursue further evaluation to rule out the possibility of cardiac embolic source which would include a possible outpatient JESSI and further monitoring with an event monitor or implantable loop/Linq monitor. -Otherwise, continue current medical management for now. -If possible, please make sure that a baseline fasting lipid profile has been checked. Consult Acknowledgment - Thank you for your consult request.
--- NOTE | 2016-12-13 13:56 | ULTRASOUND REPORT ---
EXAMINATION: DUPLEX BILATERAL CAROTID ULTRASOUND CLINICAL INFORMATION: Ischemic stroke COMPARISON: None. TECHNIQUE: Duplex bilateral carotid US was performed using real-time ultrasound and Doppler techniques (integrating B-mode 2D vascular images, Doppler spectral analysis and color flow Doppler imaging). These techniques were utilized to interrogate the extracranial carotid and vertebral arteries bilaterally. The degree of stenosis is based off criteria similar to NASCET. FINDINGS: 1. On the right: No plaque is present at the carotid bifurcation and all velocity measurements are normal and do not suggest a stenosis of greater than 50% diameter reduction in the right ICA. The vertebral artery is patent demonstrating antegrade flow. The external carotid on the right shows no significant stenosis. 2. On the left: Plaque is present at the carotid bifurcation but velocity measurements are normal and do not suggest a stenosis of greater than 50% diameter reduction in the left ICA. The vertebral artery is patent demonstrating antegrade flow. The external carotid artery on the left shows no significant stenosis. IMPRESSION: There is plaque present in the left internal carotid artery with normal velocities consistent with a minimal 0-49% stenosis. The right side is normal with no plaque seen.
[2016-12-13] MEDS ORDERED: ATORVASTATIN CA80 M1 PO (15:22)
--- NOTE | 2016-12-13 15:24 | Patient Discharge Instructions ---
Discharge Instructions General Discharge Information You were seen/treated for: Subacute ischemic stroke Special Instructions: Follow up with Dr. Bustos (neurologist), Dr. Heard (manager branch) and your primary care provider within 1 week of discharge. Please make an appointment for speech therapy by calling [facility] [phone]. Diet Continue normal diet: Yes Recommended Diet: Heart Healthy Activity Full Activity/No Limits: Yes (As tolerated) Acute Coronary Syndrome Inclusion Criteria At DC or during hospital stay patient has or had the following: ACS DIAGNOSIS No Discharge Core Measures Meds if any: Prescribed or Continued at Discharge Meds if any: NOT Prescribed or Continued at Discharge Congestive Heart Failure Inclusion Criteria At DC or during hospital stay patient has or had the following: CHF DIAGNOSIS No Discharge Core Measures Meds if any: Prescribed or Continued at Discharge Meds if any: NOT Prescribed or Continued at Discharge Cerebrovascular accident Inclusion Criteria At DC or during hospital stay patient has or had the following: CVA/TIA Diagnosis Yes Discharge Core Measures Meds if any: Prescribed or Continued at Discharge Meds if any: NOT Prescribed or Continued at Discharge Venous thromboembolism Inclusion Criteria VTE Diagnosis No VTE Type NONE VTE Confirmed by (Test) NONE Discharge Core Measures - Per Current guidelines, there needs to be overlap - treatment for the first 5 days of Warfarin therapy. - If discharged on Warfarin prior to 5 days of - overlap therapy, the patient will need to be - assessed for post discharge needs including - *Post discharge parental anticoagulation - *Warfarin and/or parental anticoagulation education - *Follow up date to check INR post discharge At least 5 days overlap therapy as Inpatient No Meds if any: Prescribed or Continued at Discharge Note: Overlap Therapy is Warfarin and Anticoagulant Meds if any: NOT Prescribed or Continued at Discharge
[2016-12-13 16:18] VITALS: BP 106/66
--- NOTE | 2016-12-13 17:26 | CT SCAN REPORT ---
EXAMINATION: CT ANGIOGRAM OF THE HEAD CT ANGIOGRAM OF THE NECK CLINICAL INFORMATION: Weakness, dysarthria and dizziness. CVA. COMPARISON: CT scan of the head 12/12/2016. TECHNIQUE: Test bolus sequences followed by intravenous administration 120 mL of Optiray 350. Helical imaging was performed in the axial plane from the mediastinum to the skull vertex. Delayed postcontrast imaging of the head was also performed. The data was processed at the radiology technologist workstation for generation of MIP sequences. The degree of stenosis is based off NASCET criteria. Three-dimensional volume rendered reformatted images were also generated at an offline 3-D workstation. DLP: 2509.01 mGy-cm. FINDINGS: CT HEAD: The study redemonstrates the area of low attenuation in the medial right cerebellar hemisphere, not significantly changed compared to the prior study. There is no evidence of acute intracranial hemorrhage or territorial infarct elsewhere. There no abnormal mass-effect or midline shift is seen. Jacobs to white matter differentiation is well preserved. No extra-axial fluid collections are identified. There is no abnormal enhancement. The ventricles are normal in size. There are patchy areas of low attenuation in the periventricular and subcortical white matter, most consistent with chronic microvascular ischemic changes. 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 There are no acute osseous findings. The soft tissues are unremarkable. The mastoid air cells are well aerated. There is xgaw-mr-pzffdoli mucoperiosteal thickening in the bilateral sphenoid and ethmoid sinuses. CTA NECK: There is a common origin of the left common carotid and brachiocephalic arteries, a normal variant. The proximal arch vessels are widely patent. The subclavian arteries are patent bilaterally. The origins of both vertebral arteries are well demonstrated. The left vertebral artery is dominant. Both vertebral arteries are widely patent throughout their cervical course extending intradurally. The common carotid arteries bilaterally have normal caliber. There are mild atheromatous calcifications at the right carotid bifurcation with a small amount of noncalcified atheromatous plaque posteriorly. There is no significant stenosis. There is also atheromatous calcification at the left carotid bifurcation; there is less than 50% stenosis. Noncontrast: The visualized lung apices are unremarkable. The thyroid gland is nonenlarged. There is no significant lymphadenopathy; there are small multilevel lymph nodes in the neck bilaterally. There are retention cysts in the inferior right maxillary sinus and there is opacification of the bilateral ethmoid and sphenoid sinuses as described above. The temporomandibular joints appear normal. The orbits are unremarkable. CTA HEAD: In the anterior circulation, the distal internal carotid arteries within the neck appear normal. The intracranial internal carotid arteries and their bifurcations appear normal. The middle and anterior cerebral arteries bilaterally demonstrate normal caliber with no evidence of focal stenosis, aneurysm or vascular malformation. There is normal arborization of the middle cerebral artery branches. The anterior communicating artery is normal. In the posterior circulation, the left vertebral artery is dominant. The vertebral arteries intradurally have uniform caliber. The basilar artery appears normal. The posterior cerebral arteries have normal caliber. The venous sinuses opacify normally. IMPRESSION: 1. The study redemonstrates an area of low attenuation in the medial right cerebellar hemisphere. There is no abnormal enhancement in this region, and the findings may be consistent with an evolving infarct. 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 2. There are no acute bleeds or large territorial infarcts. 3. There is mild to moderate paranasal sinus disease. 4. There is less than 50% stenosis at the left carotid bifurcation. There is no significant stenosis on the right. 5. Intracranially no focal stenoses, vascular malformations or aneurysms are demonstrated.
[2016-12-14 08:00] VITALS: BP 122/80
[2016-12-14 09:34] VITALS: BP 136/92
--- NOTE | 2016-12-14 10:12 | PN- Housestaff ---
Subjective Follow-up For: Subacute stroke Tele-Events Since Last Visit: Sinus bradycardia with first-degree heart block heart rate of 58-70 IL of 22. Subjective: Patient seen and examined at bedside with spouse next to patient. He denies any new focal neurological deficit, chest pain, palpitation, shortness of breath, fever, chills, abdominal pain or dysuria. Patient is eager for discharge and was awaiting MRI. No acute overnight event reported by nursing staff. Review of Systems Constitutional: Reports: no symptoms. Objective Last 24 Hrs of Vital Signs/I&O Vital Signs Date Time Temp Pulse Resp B/P B/P Pulse O2 O2 Flow FiO2 Mean Ox Delivery Rate 12/14 0934 78 136/92 12/14 08 97.2 62 20 122/80 95 Room Air 12/14 0000 Room Air Intake & Output 12/14 1600 12/14 0800 12/14 0000 Intake Total 600 300 400 Output Total Balance 600 300 400 Intake, Oral 600 300 400 Number 1 Bowel Movements Physical Exam General Appearance: Alert, Oriented X3, Cooperative Other Physical Findings: Skin No Rashes, No Breakdown, No Significant Lesion HEENT Atraumatic, PERRLA, EOMI, Mucous Membr. moist/pink, Cranial nerves 2-12 intact. No deviation of tongue or uvula . He did have some nystagmus to the left Neck Supple, No JVD, No LAD Cardiovascular Regular Rate, Normal S1, Normal S2, No Murmurs Lungs Clear to Auscultation, Normal Air Movement Abdomen Soft, No Tenderness Neurological Normal Gait, Normal Speech, Strength at 5/5 X4 Ext, Normal Tone, Sensation Intact, Cranial Nerves 3-12 NL, Reflexes 2+, cardiovascular 12 intact. No tongue or uvula deviation. He did have some nystagmus towards the left., no dysdiadochokinesia noted. No pronator drift., slight dysarthria noted particularly towards the suffix upwards. Handwriting a slightly untidy and different from baseline per patient., No pronator drift. Some slight imbalance noted when he was standing with eyes closed Extremities No Clubbing, No Cyanosis, No Edema, Normal Pulses Current Medications: Current Medications Sig/Cameron Start time Last Medication Dose Route Stop Time Status Admin Acetaminophen 650 MG Q6 PRN 12/12 2114 DCD PO Aspirin Buffered 81 MG DAILY 12/13 1000 DCD 05/27 PO 0934 Atorvastatin Calcium 80 MG 1700 12/12 2300 DCD 12/13 PO 1701 Heparin Sodium 5,000 UNIT Q8 12/12 2200 DCD 12/14 (Porcine) SC 1358 Losartan Potassium 25 MG DAILY 12/13 1000 DCD 12/14 PO 0934 Magnesium Oxide 400 MG DAILY 12/13 1000 DCD 12/14 PO 0934 Morphine Sulfate 2 MG Q6-PRN PRN 12/12 2114 DCD IV Multivitamins 1 TAB DAILY 12/14 1054 DCD 12/14 PO 1358 Oxycodone HCl 5 MG Q6 PRN 12/12 2115 DCD PO Assessment/Plan Assessment: 56 yo M with h/o HTN, HLD, and family h/o stroke in his sister at age 60 yrs, first noted vertigo > 1 week ago associated with speech deficits mainly difficulty pronouncing words, slurring and changes in his handwriting most likely 2/2 subacute CVA. # Subacute cerebellar ischemic CVA -MRI done today was remarkable for a small acute infarct within the right cerebellar hemisphere. Patient initial visitation symptoms of difficulty speaking and writing seem to have completely resolved. As patient reported symptoms for a week before presentation he was never candidate of TPA. Patient has been medically optimized with statins and antiplatelet therapy. He does not show any acute new focal neurological deficits. His echocardiogram did not show any abnormal valvular pathology, or motion deficits or any signs of thrombus ( this was communicated to me by Dr. Heard as stated official echocardiogram was not uploaded yet). # Essential HTN. Patient on olmesartan 10mg QD at home. * Cont losartan 25mg PO QD - Heart healthy diet - Mild pain pathway - DVT ppx with Lovenox. - Full code. Problem List: 1. Stroke Pain Ratin Pain Location: none Pain Goal: Remain pain free Pain Plan: none Tomorrow's Labs & Rationales: none-discgarge
--- NOTE | 2016-12-14 10:20 | NUR ---
TO MRI VIA WHEELCHAIR. ALERT ORIENTED X3. NO COMPLAINTS.
--- NOTE | 2016-12-14 11:00 | NUR ---
BACK FROM MRI VIA WHEELCHAIR. PLACED BACK ON MONITOR. ALERT ORIENTED X3. NO COMPLAINTS. SPOUSE AT BEDSIDE FOR EMOTIONAL SUPPORT. CALL [facility] IN REACH.
--- NOTE | 2016-12-14 12:58 | MRI REPORT ---
EXAMINATION: MR BRAIN WITHOUT CONTRAST CLINICAL INFORMATION: Dysarthria. Dizziness. Weakness. COMPARISON: CT angiogram of the head and neck 12/13/2016. TECHNIQUE: MRI of the brain without contrast was obtained using routine sequences. FINDINGS: There is a small acute infarct within the right cerebellar hemisphere just superior to the dentate nucleus of the cerebellum. This finding is best illustrated on axial image 50 of 66 series 3. There is no evidence of associated hemorrhage. The gradient echo sequence demonstrates a few scattered foci of punctate magnetic susceptibility artifact primarily involving the central beckman matter. There are numerous foci of T2 FLAIR signal hyperintensity throughout the periventricular white matter and suzan that most likely represent a chronic manifestation of small vessel ischemia. Intracranial vascular flow voids are grossly maintained. There is no intracranial mass effect or midline shift. No abnormal extra axial collection. Lateral and third ventricles are normal. No hydrocephalus. Midline structures including the cervicomedullary junction are normal. Bone marrow signal intensity is normal. There is no mastoid or middle ear effusion. Mild to moderate paranasal sinus disease. Globes and orbits are symmetric. IMPRESSION: There is a small acute infarct within the right cerebellar hemisphere. This acute finding is superimposed upon numerous chronic small vessel ischemic changes throughout the periventricular white matter and suzan. There are a few scattered chronic microhemorrhages primarily involving the central beckman matter which may indicate a chronic manifestation of hypertensive angiopathy therefore correlation with the patient's clinical examination is recommended with regard to this finding.
--- NOTE | 2016-12-14 13:52 | PN- Cardiology ---
Subjective Subjective: Clinically stable with no new neurologic or cardiac issues. Awaiting discharge. Objective Vital Signs and I&Os Vital Signs Date Time Temp Pulse Resp B/P B/P Pulse O2 O2 Flow FiO2 Mean Ox Delivery Rate 12/14 0934 78 136/92 12/14 0800 97.2 62 20 122/80 95 Room Air 12/14 0000 Room Air 12/13 1618 98.2 74 18 106/66 95 Room Air Intake & Output 12/14 1600 12/14 0800 12/14 0000 12/13 1600 12/13 0812/13 0000 Intake Total 300 400 600 100 0 Output Total Balance 300 400 600 100 0 Intake, Oral 300 400 600 100 0 Patient 180 lb 180 lb Weight Weight Reported by Patient Reported by Patient Measurement Method Physical Exam: General Appearance Alert, Oriented X3, Cooperative, No Acute Distress Skin No Rashes, No Breakdown, No Significant Lesion HEENT Atraumatic, PERRLA, EOMI, Mucous Membr. moist/pink, Cranial nerves 2-12 intact. No deviation of tongue or uvula . He did have some nystagmus to the left Neck Supple, No JVD, No LAD, carotids normal bilaterally with no bruits Cardiovascular Regular Rate, Normal S1, Normal S2, 1/6 systolic murmur Lungs Clear to Auscultation, Normal Air Movement Abdomen Soft, No Tenderness Extremities No Clubbing, No Cyanosis, No Edema, Normal Pulses Current Medications: Current Medications Sig/Cameron Start time Last Medication Dose Route Stop Time Status Admin Acetaminophen 650 MG Q6 PRN 12/12 2114 AC PO Aspirin Buffered 81 MG DAILY 12/13 1000 AC 12/14 PO 0934 Atorvastatin Calcium 80 MG 1700 12/12 2300 AC 12/13 PO 1701 Clopidogrel Bisulfate 75 MG DAILY 12/14 1000 CAN PO Heparin Sodium 5,000 UNIT Q8 12/12 2199 AC 12/14 (Porcine) SC 0634 Losartan Potassium 25 MG DAILY 12/13 1000 AC 12/14 PO 0934 Magnesium Oxide 400 MG DAILY 12/13 1000 AC 12/14 PO 0934 Morphine Sulfate 2 MG Q6-PRN PRN 12/12 2114 AC IV Multivitamins 1 TAB DAILY 12/14 1054 AC PO Oxycodone HCl 5 MG Q6 PRN 12/12 2114 AC PO Results Last 48 Hrs of Labs/Mics: Laboratory Tests 12/13/16 0025: Troponin I < 0.01, Vitamin B12 361, TSH 2.930 12/12/16 1635: Anion Gap 12, Estimated GFR > 60, BUN/Creatinine Ratio 17.5, Glucose 126 H, Hemoglobin A1c 5.7, Calcium 9.1, Total Bilirubin 0.4, AST 24, ALT 39, Alkaline Phosphatase 57, Troponin I < 0.01, Total Protein 6.9, Albumin 4.3, Globulin 2.6, Albumin/Globulin Ratio 1.7, CBC w Diff NO MAN DIFF REQ, RBC 4.38 L, MCV 86.6, MCH 29.4, RDW 14.1, MPV 8.5, Gran % 58.4, Lymphocytes % 29.9, Monocytes % 6.0, Eosinophils % 5.3 H, Basophils % 0.4, Absolute Granulocytes 4.2, Absolute Lymphocytes 2.1, Absolute Monocytes 0.4, Absolute Eosinophils 0.4, Absolute Basophils 0, PUBS MCHC 34.0 Assessment/Plan Assessment/Plan Assessment: 1. Cerebellar stroke, subacute 2. History of hypertension 2. History of palpitations Recommendations: - Await MRI result - Followup with me as outpatient for scheduling of JESSI and event monitor. - Continue current medication regimen Continue telemetry? No
--- NOTE | 2016-12-14 16:47 | PN- Att Addend ---
Attending MD Review Statement Attending Statement Attending MD Statement: examined this patient, discuss w/resident/PA/BLADE ALIGNER, agreed w/resident/PA/BLADE ALIGNER, discussed with family, reviewed EMR data (avail), discussed w/ nursing Attending Assessment/Plan: Vital Signs Date Time Temp Pulse Resp B/P B/P Pulse O2 O2 Flow FiO2 Mean Ox Delivery Rate 12/14 0934 78 136/92 12/14 0800 97.2 62 20 122/80 95 Room Air 12/14 0000 Room Air Patient seen and examined at bedside. Discussed with patient as well as patient 's at bedside the care plan. 56-year-old male admitted with the right cerebellar stroke with the speech difficulty at presentation. His speech is much better now compared with admission. His carotid ultrasound did not reveal any stenosis which was significant. He also had an MRI done today which is reported as-"small acute infarct within the right cerebellar hemisphere. This acute finding is superimposed upon numerous chronic small vessel ischemic changes throughout the periventricular white matter and suzan. There are a few scattered chronic microhemorrhages primarily involving the central beckman matter which may indicate a chronic manifestation of hypertensive angiopathy" We're waiting for patient's echocardiogram results. If echocardiogram is unrevealing the plan would be to discharge the patient most likely tomorrow. His B12 level was on the lower side at 361 so we have started the patient on by mouth multivitamin.
--- NOTE | 2016-12-23 09:42 | ECHOCARDIOGRAM REPORT ---
WILLIS WILLIAMSON Age: 56 : 1960 Gender: M Exam Date: 12/13/2016 08:45 Exam Location: [facility] Ht (in): 66 Wt (lb): 180 BSA: 1.97 BP: 130 / 70 Ordering Physician: WEN MARIANO MD Referring Physician: WEN MARIANO MD Technologist: Dakota Olivares [facility] Room Number: 174-2 Indications: STROKE Rhythm: Sinus Technical Quality: Good FINDINGS Left Ventricle Normal global left ventricular size, wall thickness, systolic function with no obvious regional wall motion abnormalities. Normal left ventricular ejection fraction estimated at 55-60%. Right Ventricle Right ventricle at upper limits of normal. Right Atrium Normal right atrial size. Left Atrium Left atrial size at the upper limits of normal. Mitral Valve Mitral valve thickened. Trace to mild mitral regurgitation. Aortic Valve Unicuspid aortic valve. Focal thickening of the aortic valve cusps. No aortic stenosis. No aortic regurgitation. Tricuspid Valve Tricuspid valve not well visualized, grossly normal. Trace tricuspid regurgitation. Right ventricular systolic pressure estimated at 26 mmHg. Pulmonic Valve Pulmonic valve not well visualized, grossly normal. Trace pulmonic regurgitation. Pericardium No pericardial effusion. Normal pericardium. Great Vessels Normal size aortic root and proximal ascending aorta. CONCLUSIONS 1. Minimal to mild aortic sclerosis is present with no valvular stenosis or insufficiency. 2. Mitral leaflet thickening is present with minimal to mild mitral insufficiency 3. There is no pericardial fluid present. 4. The left ventricular chamber size and systolic function are normal with no resting wall motion abnormalities. 5. Minimal tricuspid and pulmonic insufficiency are present with no evidence of pulmonary hypertension. 6. No definite embolic sources are identified on this study. If clinically indicated, a JESSI would better exclude potential embolic sources. THIS STUDY WAS AMENDED ONLY TO CORRECT PATIENT IDENTIFIERS. Hoa Heard M.D. (Electronically Signed) Final Date: 13 Dec 2016 13:44 Amended: 20 December 2016 14:16 MEASUREMENTS (Male / Female) Normal Values 2D ECHO LV Diastolic Diameter PLAX 4.0 cm 4.2 - 5.9 / 3.9 - 5.3 cm LV Systolic Diameter PLAX 2.3 cm 2.1 - 4.0 cm LV Fractional Shortening PLAX 42.5 % 25 - 46 % LV Ejection Fraction 2D Teich 74.1 % IVS Diastolic Thickness 1.2 cm LVPW Diastolic Thickness 1.1 cm LV Relative Wall Thickness 0.6 RV Internal Dim ED PLAX 3.0 cm 1.9 - 3.8 cm LVOT Diameter 2.1 cm Aortic Root Diameter 3.0 cm LA Systolic Diameter LX 3.4 cm 3.0 - 4.0 / 2.7 - 3.8 cm LA Volume 49.0 cm 18 - 58 / 22 - 52 cm Ascending Aorta Diameter 3.1 cm DOPPLER AV Peak Velocity 151.0 cm/s AV Peak Gradient 9.1 mmHg AV Mean Velocity 107.0 cm/s AV Mean Gradient 5.0 mmHg AV Velocity Time Integral 35.0 cm LVOT Peak Velocity 98.5 cm/s LVOT Peak Gradient 3.9 mmHg LVOT Mean Velocity 54.7 cm/s LVOT Mean Gradient 2.0 mmHg LVOT Velocity Time Integral 22.6 cm LVOT Stroke Volume 78.3 cm AV Area Cont Eq vti 2.2 cm AV Area Cont Eq pk 2.3 cm MV Peak Velocity 84.1 cm/s MV Peak Gradient 2.8 mmHg MV Mean Velocity 63.8 cm/s MV Mean Gradient 2.0 mmHg Mitral E Point Velocity 76.0 cm/s Mitral A Point Velocity 50.3 cm/s Mitral E to A Ratio 1.5 MV PHT Velocity 89.6 cm/s MV Deceleration [place] 429.0 cm/s MV Pressure Half Time 62.7 ms MV Area PHT 3.5 cm MV Deceleration Time 257.0 ms MR Peak Velocity 496.5 cm/s MR Peak Gradient 98.6 mmHg TR Peak Velocity 236.0 cm/s TR Peak Gradient 22.3 mmHg Right Atrial Pressure 10.0 mmHg Pulmonary Artery Systolic Pressu 32.3 mmHg Right Ventricular Systolic Press 32.3 mmHg PV Peak Velocity 128.0 cm/s PV Peak Gradient 6.6 mmHg PV Mean Velocity 88.4 cm/s PV Mean Gradient 4.0 mmHg PV Velocity Time Integral 30.7 cm LV E' Lateral Velocity 11.1 cm/s Mitral E to LV E' Lateral Ratio 6.8 LV E' Septal Velocity 9.4 cm/s Mitral E to LV E' Septal Ratio 8.1
--- NOTE | 2016-12-26 09:47 | Discharge Summary ---
Visit Information Visit Dates Admission Date: 12/12/16 Discharge Date: 12/14/16 Hospital Course Course Attending Physician: RANDELL ZHANG MD Primary Care Physician: AZAR HOYOS DO Hospital Course: 56 yo M with h/o HTN, HLD, and family h/o stroke in his sister at age 60 yrs, first noted vertigo > 1 week ago associated with speech deficits mainly difficulty pronouncing words, slurring and changes in his handwriting most likely 2/2 subacute CVA. 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 As patient reported symptoms started a week [employer]G [employer] he was not considered a candidate for TPA. ACS was ruled out wtih serial trops/ EKGs. Carotid ultrasound was unconcerning. HbA1c, TSH, B12 within normal range. Patient was medically optimized with high dose statin and antiplatelt. His Lipitor was increased dose to 80mg daily. He was continued on his home med aspirin 81mg daily, which was started a few days [employer]SEM[employer]. During the hospitalization, he did not exhibit any acute new focal neurological deficits. His echocardiogram did not show any abnormal valvular pathology, or motion deficits or any signs of thrombus (see below). By the time of discharge, patient 's initial symptoms including dysarthria and dysphagia resolved. - CT Head (12/12): No acute intracranial hemorrhage. Focal hypoattenuation within the right cerebellar hemisphere could represent an infarct of uncertain chronicity. This could be further evaluated by MRI. Additional mild small vessel ischemic changes. - MRI Head (12/14): There is a small acute infarct within the right cerebellar hemisphere. This acute finding is superimposed upon numerous chronic small vessel ischemic changes throughout the periventricular white matter and suzan. There are a few scattered chronic microhemorrhages primarily involving the central beckman matter which may indicate a chronic manifestation of hypertensive angiopathy. - Echo (12/13): 1. Minimal to mild aortic sclerosis is present with no valvular stenosis or insufficiency. 2. Mitral leaflet thickening is present with minimal to mild mitral insufficiency 3. There is no pericardial fluid present. 4. The left ventricular chamber size and systolic function are normal with no resting wall motion abnormalities. 5. Minimal tricuspid and pulmonic insufficiency are present with no evidence of pulmonary hypertension. 6. No definite embolic sources are identified. - Carotid U/S (12/13): On the left: Plaque is present at the carotid bifurcation but velocity measurements are normal and do not suggest a stenosis of greater than 50% diameter reduction in the left ICA. # Essential HTN. Patient was kept on losartan 25mg PO QD - Heart healthy diet - Mild pain pathway - DVT ppx with Lovenox. - Full code Allergies: Coded Allergies: No Known Allergies (12/12/16) Disposition Summary Disposition Principal Diagnosis: CVA Additional Diagnosis: N/A Discharge Disposition: home or self care Discharge Instructions General Discharge Information Code Status: Full Code Patient's Diet: Heart healthy Patient's Activity: As tolerated Follow-Up Instructions/Appts: Follow up with Dr. Bustos (neurologist), Dr. uJarez (edge drummer) and your primary care provider within 1 week of discharge. Please make an appointment for speech therapy by calling [facility] [phone]. Medications at Discharge Discharge Medications: Stop taking the following medications: Atorvastatin Calcium (Atorvastatin Calcium) 10 MG TABLET ORAL DAILY Qty = 90 Continue taking these medications: Olmesartan Medoxomil (Benicar) 20 MG TABLET 0.5 Tablet ORAL DAILY Qty = 45 Comments: Last Taken: 12/14/16 Time: 9:30 am *Losartan given instead* Magnesium Oxide (Magnesium) 500 MG CAPSULE 1 Capsule ORAL DAILY Comments: Last Taken: 12/14/16 Time: 9:30 am Aspirin (Ecotrin*) 81 MG TABLET. 1 Tablet ORAL DAILY Comments: Last Taken: 12/14/16 Time: 9:30 am Start taking the following new medications: Atorvastatin Calcium (Atorvastatin Calcium) 80 MG TABLET 80 Milligram ORAL 5 PM Qty = 60 No Refills Comments: Last Taken: 12/13/16 Time: 5 pm Copies To: JACOB MARTIN,TJ Rodríguez; Reese JUAREZ MD; AZAR HOYOS DO Attending MD Review Statement Documenting Attending: RANDELL ZHANG MD Other Findings: The patient was seen and discussed with house staff. Agree with the plan of care as outlined.
== END 2016-12-14 16:05 | DRG 66 ==
LOC: ERH 16:20 → 1NO 20:12 → ERHI 20:12 → ENRESERV 21:09 → 1NO 22:23
PROVIDERS: Emergency Medicine; ADMIT Student in an Organized Health Care Education/Training Program
DX: I63.9 Cerebral infarction, unspecified (principal); I10 Essential (primary) hypertension; E78.5 Hyperlipidemia, unspecified
CPT/HCPCS: 1NSP; 6020; 70551; 93005; 93010; 93306; 96105-GN; G0378; J1644